=== PATIENT | male | born 1990 | race Caucasian/White ===

== ENCOUNTER 2020-04-13 10:01 | Emergency (ER) | payer OTHER, SELFPAY ==
[2020-04-13 10:58] VITALS: BP 156/76; PULSE 65; RESP 16; TEMP 36.9; O2SAT 97; BMI 37.0
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
== END 2020-04-13 11:32 | disposition home or self-care (01) ==
PROVIDERS: Emergency Provider Emergency Medicine
DX: Z04.2 Encounter for examination and observation following work accident (principal); M54.5 Low back pain
CPT/HCPCS: 99283

== ENCOUNTER 2020-07-16 14:26 | Outpatient (REF) | payer MEDICAID, SELFPAY | END 2020-07-16 14:27 | disposition home or self-care (01) | LOC: HO.LAB 14:26 | PROVIDERS: Visit Provider Internal Medicine | DX: Z20.822 Contact with and (suspected) exposure to COVID-19 (principal) | CPT/HCPCS: C9803; U0003; U0005 ==

== ENCOUNTER 2021-04-03 14:36 | Outpatient (REF) | payer MEDICAID, SELFPAY ==
[2021-04-03 15:01] LABS: COVID-19 Test Negative (Negative)
== END 2021-04-03 14:37 | disposition home or self-care (01) ==
LOC: HO.LAB 14:36
PROVIDERS: Visit Provider Internal Medicine
DX: Z20.822 Contact with and (suspected) exposure to COVID-19 (principal)
CPT/HCPCS: 87635; C9803

== ENCOUNTER 2021-06-05 10:42 | Emergency (ER) | payer MEDICAID, SELFPAY ==
[2021-06-05 10:52] VITALS: BP 121/60; PULSE 53; RESP 18; TEMP 37.1; O2SAT 98; BMI 37.2
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
[2021-06-05] MEDS: Ketorolac Tromethamine 60 MG/2 ML VIAL IM (11:49)
== END 2021-06-05 12:15 | disposition home or self-care (01) ==
PROVIDERS: Emergency Provider Emergency Medicine
DX: G89.29 Other chronic pain (principal); M54.50 Low back pain, unspecified
CPT/HCPCS: 96372; 99283; 99284; J1885

== ENCOUNTER 2021-08-06 21:00 | Emergency (ER) | payer MEDICAID, SELFPAY ==
[2021-08-06 22:01] VITALS: BP 127/82; PULSE 72; RESP 18; TEMP 36.7; O2SAT 97; BMI 37.3
--- NOTE | 2021-08-07 01:12 | ED.BACK ---
HPI - Back Pain/Injury General Chief Complaint: Back Pain/Injury Stated Complaint: lower back pain Time Seen by Provider: 08/07/21 00:55 Source: patient Mode of arrival: ambulatory Limitations: no limitations History of Present Illness HPI Narrative: Patient comes emergency room complaining of acute on chronic right-sided back pain. Patient has been going to physical therapy for chronic back pain. Patient states that today when he stood up from a sitting position, he started having sharp right sided back pain. Patient states that whenever he moves his leg or back a certain way, he feels a sharp pain that lasts for less than a second. Patient denies urinary/fecal incontinence/retention. Denies flank pain, no fever chills, denies IV drug use. Patient has been using diclofenac, gabapentin, Flexeril. Related Data Previous Rx's Medication Instructions Recorded cyclobenzaprine 5 mg tablet 5 mg PO TID PRN #10 tab 04/13/20 ibuprofen 600 mg tablet 600 mg PO Q6H PRN #20 tab 04/13/20 dexamethasone 6 mg tablet 6 mg PO DAILY #7 tab 06/05/21 (Decadron) lidocaine 5 % topical patch 1 patch TOPICAL DAILY #15 ea 06/05/21 (Lidoderm) methocarbamol 750 mg tablet 750 mg PO Q8H PRN #20 tab 06/05/21 diclofenac sodium 1 % topical gel 4 g TOPICAL QID #100 g 08/07/21 (Voltaren Arthritis Pain) Allergies Allergy/AdvReac Type Severity Reaction Status Date / Time No Known Allergies Allergy Verified 08/06/21 22:00 [No Known Allergies*] Review of Systems Review of Systems: Constitutional : No Weight loss, No Fever, No Chills, No Night Sweats, No Fatigue, No Malaise ENT/Mouth : No Hearing loss, No Ear Pain, No Nasal Congestion, No Sinus Pain, No Hoarseness, No sore throat, No Rhinorrhea, No Swallowing Difficulty Eyes: No Eye Pain, No Swelling, No Redness, No Foreign Body, No Discharge, No Vision Changes Cardiovascular : No Chest Pain, No SOB, No Dyspnea on Exertion, No Orthopnea, No Edema, No Palpitations Respiratory : No Cough, No Sputum, No Wheezing, No Smoke Exposure, No Dyspnea Gastrointestinal : No Nausea, No Vomiting, No Diarrhea, No Constipation, No abdominal Pain, No Hematochezia, No Melena Genitourinary : no irregular bleeding, No Dysuria, No Urinary Frequency, No Hematuria, No Urinary Incontinence, No Urgency, No Flank Pain, No Urinary Flow Changes, No Hesitancy Musculoskeletal : No joint pain, No Myalgias, No Joint Swelling, complaining right-sided back pain lower aspect Skin : No Skin Lesions, No rash Neuro : No Weakness, No Numbness, No Paresthesias, No Loss of Consciousness, No Dizziness, No Headache Psych : No Anxiety/Panic, No Depression, No SI/HI/AH/VH, No Social Issues, Heme/Lymph: No Bruising, No Bleeding,No Lymphadenopathy Endocrine : No Polyuria, No Polydipsia, No Temperature Intolerance PMFSH Past Medical History Medical History No known health problems Social History Social History Advance Directives: No Advance Directives Information Provided: No Physical Exam Vital Signs: Vital Signs: Last Vital Signs Temp 98.0 F 08/06/21 22:01 Pulse 72 08/06/21 22:01 Resp 18 08/06/21 22:01 BP 127/82 08/06/21 22:01 Pulse Ox 97 08/06/21 22:01 BMI result Body Mass Index 37.3 Const: Other: Appearance: Alert. Oriented X3. No acute distress. Eyes: Pupils equal, round and reactive to light. ENT: Pharynx normal. Neck: Normal inspection. Neck supple. No lymph nodes noted. No crepitus CVS: Normal heart rate and rhythm. Pulses normal. Normal S1 and S2 Respiratory: No respiratory distress. Breath sounds normal. No Wheezing. No rales Abdomen: Soft and nontender. No rigidity. No distention. Skin: Skin warm and dry. Normal skin color. Normal skin turgor Back: Pain to palpation on the right side of the lower back, no thoracic or lumbar spine tenderness. Patient has stable gait Extremities: No lower extremity edema. No Lacerations. No Rash Neuro: Oriented X 3. No motor deficit. No sensory deficit. Moving all extremities. No slurred speech. CN 2 through 12 grossly intact Psych: calm, cooperative, normal affect Course Course Course Narrative: I discussed with the patient that he likely has musculoskeletal pain. Patient given IM Toradol and dexamethasone. Patient instructed to follow-up with his primary care physician and to inform his physical therapist about the pain that he is experiencing. Patient is due for physical therapy again tomorrow. Patient states that he has enough diclofenac PO, cyclobenzaprine at home. Discharge Plan Discharge Clinical Impression: Lower back pain Patient Disposition: Home, Self-Care Instructions: Back Pain (ED) Additional Instructions: Please follow-up with your primary care physician tomorrow. If you have any worsening or new symptoms, please return to the emergency room or call 911 Prescriptions: New diclofenac sodium [Voltaren Arthritis Pain] 1 % gel 4 g topical QID Qty: 100 0RF Rx Instructions: apply to single knee, ankle, foot; for foot includes sole/toes/top of foot No Action ibuprofen 600 mg tablet 600 mg PO Q6H PRN (Reason: pain) Qty: 20 0RF cyclobenzaprine 5 mg tablet 5 mg PO TID PRN (Reason: muscle spasm) Qty: 10 0RF methocarbamol 750 mg tablet 750 mg PO Q8H PRN (Reason: muscle spasm) Qty: 20 0RF dexamethasone [Decadron] 6 mg tablet 6 mg PO DAILY Qty: 7 0RF lidocaine [Lidoderm] 5 % adhesive patch,medicated 1 patch topical DAILY Qty: 15 0RF Rx Instructions: leave on most painful area for up to 12 hrs
[2021-08-07] MEDS: dexAMETHasone sod phosphate 4 MG/ML VIAL IM (01:34)
[2021-08-07] MEDS: Ketorolac Tromethamine 60 MG/2 ML VIAL IM (01:35)
--- NOTE | 2021-08-07 01:41 | PC.NURSE ---
pt a&0, NO sob or chest pain. pt medicated per May. Reviewed discharge instructions with pt. pt verbalized understanding.
== END 2021-08-07 01:43 | disposition home or self-care (01) ==
PROVIDERS: Emergency Provider Emergency Medicine; PCP Pediatrics
DX: M54.50 Low back pain, unspecified (principal)
CPT/HCPCS: 96372; 99281; 99282; 99284; J1100; J1885

== ENCOUNTER 2021-08-07 13:00 | Outpatient (RCR) | payer OTHER, MEDICAID, SELFPAY | END 2021-12-12 14:14 | disposition home or self-care (01) | LOC: HO.PTCHIC 13:00 | PROVIDERS: PCP Pediatrics; Visit Provider Pediatrics | DX: M47.816 Spondylosis without myelopathy or radiculopathy, lumbar region (principal) | CPT/HCPCS: 97014; 97110; 97161 ==

== ENCOUNTER 2021-09-14 21:47 | Emergency (ER) | payer MEDICAID, SELFPAY ==
--- NOTE | ~2021-09-14 | XR_ITS ---
EXAMINATION: XR CHEST CLINICAL INFORMATION: Fever and cough COMPARISON: None TECHNIQUE: 2 views of the chest were obtained. FINDINGS: The lungs are well expanded. There is no focal consolidation, edema, or effusion. No pneumothorax. The cardiomediastinal silhouette is within normal limits. No acute osseous abnormality. XR/XR chest 2V IMPRESSION: Clear lungs.
[2021-09-14 22:16] VITALS: BP 138/76; PULSE 82; RESP 19; TEMP 37.1; O2SAT 97; BMI 36.9
[2021-09-14 22:56] LABS: COVID-19 Test Positive (Negative)
[2021-09-14 23:09] LABS: IDNOW Serial# 16C4AD1C; Influenza A Negative (Negative); Influenza B2 Negative (Negative)
--- NOTE | 2021-09-15 01:22 | ED_ITS ---
HPI - General Adult General Chief complaint: General Medical Stated complaint: fever, cough, sore throat, headache Time Seen by Provider: 09/14/21 22:41 Source: patient Mode of arrival: ambulatory Limitations: language barrier History of Present Illness HPI narrative: 31-year-old male presents with 1 day of upper respiratory symptoms. States that he has been around people who are sick and are COVID positive. He is requesting COVID-19 testing. Onset (ago): day(s) (1) Location: head and chest Radiation: non-radiation Severity: mild Severity scale (1-10): 3 Quality: burning Pain Consistency: constant Relieving factors: none Exacerbating factors: none Associated symptoms: cough, fever/chills, headaches and malaise Treatments prior to arrival: none Related Data Previous Rx's Medication Instructions Recorded cyclobenzaprine 5 mg tablet 5 mg PO TID PRN muscle spasm #10 04/13/20 tabs ibuprofen 600 mg tablet 600 mg PO Q6H PRN pain #20 tabs 04/13/20 dexamethasone 6 mg tablet 6 mg PO DAILY #7 tabs 06/05/21 (Decadron) lidocaine 5 % topical patch 1 patch topical DAILY #15 ea 06/05/21 (Lidoderm) methocarbamol 750 mg tablet 750 mg PO Q8H PRN muscle spasm #20 06/05/21 tabs diclofenac sodium 1 % topical gel 4 g topical QID #100 grams 08/07/21 (Voltaren Arthritis Pain) benzonatate 200 mg capsule 200 mg PO TID PRN cough #30 caps 09/15/21 Allergies Allergy/AdvReac Type Severity Reaction Status Date / Time No Known Allergies Allergy Verified 08/06/21 22:00 [No Known Allergies*] Review of Systems Review of Systems: Constitutional: positive Fever, positive Chills, positive fatigue, positive Malaise ENT/Mouth: positive sore throat, positive runny nose Eyes: No Discharge Cardiovascular: No Chest Pain, No SOB Respiratory: Positive Cough, No Sputum, No Wheezing, No Smoke Exposure, No Dyspnea Gastrointestinal: No Nausea, No Vomiting, No Diarrhea Genitourinary: no irregular bleeding, No Dysuria, No Urinary Frequency, No Hematuria, No Urinary Incontinence, No Urgency, No Flank Pain, Musculoskeletal: positive Myalgia Skin: No rash Neuro: Positive Headache Yes all other systems are reviewed and are negative [facility] Past Medical History Attestation statement: The following information was validated with the patient. Source: old records reviewed Medical History (Reviewed 09/15/21 @ : by Gill Rosales NP) No known health problems Social History Social History Advance Directives: No Advance Directives Information Provided: No Physical Exam ED Vital Signs: Vital Signs - 24 hr 09/14/21 22:16 Temperature 98.8 F Pulse Rate 82 Respiratory Rate 19 Blood Pressure 138/76 Pulse Oximetry 97 Oxygen Delivery Method Room Air BMI result Body Mass Index 36.9 Appearance: Alert. Oriented X3. No acute distress. Eyes: Pupils equal, round and reactive to light. ENT: Pharynx normal. Neck: Normal inspection. Neck supple. CVS: Normal heart rate and rhythm. Pulses normal. Respiratory: No respiratory distress. Breath sounds normal. Abdomen: Soft and nontender. Skin: Skin warm and dry. Normal skin color. Normal skin turgor. Extremities: No lower extremity edema. Neuro: No motor deficit. No sensory deficit. Cranial nerves 2-12 intact. Course Course Course Narrative: 31-year-old male presents for upper respiratory symptoms consistent with COVID- 19. Has been exposed to multiple sick contacts. Is requesting COVID-19 testing. Patient was tested while in the emergency department waiting room, COVID is positive. Vital signs are stable and within normal limits. O2 sat 97% on room air. Even unlabored respirations. Appears nontoxic, afebrile. Discussion for supportive measures with patient, patient verbalized understanding of and agrees to plan of care discharge home. Verbalized understanding of signs and symptoms indicating need for emergent intervention. pharmaceutical process engineer utilized for all correspondence. RN as systems spec. Medical Decision Making Differential Diagnosis Differential Diagnosis: COVID-19, influenza, RSV Medical Records Medical records reviewed: Yes I reviewed the patient's medical records. Lab Data Lab results reviewed: Yes I reviewed the patient's lab results. Labs: Lab Results 09/14/21 09/14/21 Range/Units 22:37 22:38 COVID-19 (CHELSI) Positive A (Negative) COVID-19 Clin Com See Note Influenza Type A (PAULA) Negative (Negative) Influenza Type B (PAULA) Negative (Negative) Influenza A & B Note See Note Discharge Plan Discharge Clinical Impression: COVID-19 Patient Disposition: Home, Self-Care Instructions: Covid-19 Viral Syndrome and Novel Coronavirus (ED) Hey/Ath, COVID-19 (Coronavirus Disease 2019) (ED) Additional Instructions: Usted fue evaluado por s?ntomas de las v?as respiratorias superiores. Has dado positivo por COVID-19 Mantenga el aislamiento seg?n las pautas estatales y federales. Seguimiento con holley m?dico de atenci?n primaria. Use el inhalador de albuterol seg?n sea necesario cada 4 a 6 horas para la dificultad para respirar. Use Tessalon Perles cada 8 horas seg?n sea necesario para la tos. Beber mucho l?quido. [place] Tylenol 650 mg cada 6 horas y Motrin 600 mg cada 6 horas seg?n sea necesario para controlar la fiebre y el dolor. Anote a qu? hora [place] estos medicamentos para evitar isac sobredosis accidental. Uzma por elegir shanae departamento de emergencias para holley evaluaci?n. Por favor, jennifer un seguimiento con el m?dico de atenci?n primaria seg?n sea necesario. Regrese al departamento de emergencias por cualquier s?ntoma nuevo, preocupante o que empeore. You were evaluated for upper respiratory symptoms. You tested positive for COVID-19 Please maintain isolation per State and Federal guidelines. Follow-up with her primary care physician. Use albuterol inhaler as needed every 4-6 hours for shortness of breath. Use Tessalon Perles every 8 hours as needed for cough. Drink plenty of fluids. Take Tylenol 650 mg every 6 hours and Motrin 600 mg every 6 hours as needed for fever and pain management. Write down what time you take these medications pr event accidental overdose. Thank you for choosing this emergency department for evaluation. Please follow-up with primary care physician as needed. Return to the emergency department for any new, concerning, or worsening symptoms. Prescriptions: New benzonatate 200 mg capsule 200 mg PO TID PRN (Reason: cough) Qty: 30 0RF No Action ibuprofen 600 mg tablet 600 mg PO Q6H PRN (Reason: pain) Qty: 20 0RF cyclobenzaprine 5 mg tablet 5 mg PO TID PRN (Reason: muscle spasm) Qty: 10 0RF methocarbamol 750 mg tablet 750 mg PO Q8H PRN (Reason: muscle spasm) Qty: 20 0RF dexamethasone [Decadron] 6 mg tablet 6 mg PO DAILY Qty: 7 0RF lidocaine [Lidoderm] 5 % adhesive patch,medicated 1 patch topical DAILY Qty: 15 0RF Rx Instructions: leave on most painful area for up to 12 hrs diclofenac sodium [Voltaren Arthritis Pain] 1 % gel 4 g topical QID Qty: 100 0RF Rx Instructions: apply to single knee, ankle, foot; for foot includes sole/toes/top of foot
--- NOTE | 2021-09-15 01:49 | PC.NURSE ---
pt resting in bed a&o, no increase sob or chest pain. Reviewed discharge instructions. Pt verbalized understanding.
[2021-09-15] MEDS: Albuterol Sulfate 90 MCG 8 GM INHALER 2 PUFF INHALE (02:01)
[2021-09-15] MEDS: Benzonatate 100 MG CAPSULE 200 MG PO (02:01)
[2021-09-15 02:03] VITALS: RESP 18
== END 2021-09-15 02:04 | disposition home or self-care (01) ==
PROVIDERS: Emergency Provider Internal Medicine; PCP Pediatrics
DX: U07.1 COVID-19 (principal); J02.9 Acute pharyngitis, unspecified
CPT/HCPCS: 71046; 87502; 87635; 99283; 99284

== ENCOUNTER 2021-10-06 19:29 | Emergency (ER) | payer OTHER, MEDICAID, SELFPAY ==
[2021-10-06 20:05] VITALS: BP 129/70; PULSE 61; RESP 18; TEMP 35.7; O2SAT 98; BMI 36.6
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
[2021-10-06] MEDS: Ketorolac Tromethamine 30 MG/ML VIAL IM (23:22)
[2021-10-06] MEDS: Cyclobenzaprine HCl 10 MG TABLET PO (23:22)
== END 2021-10-06 23:23 | disposition home or self-care (01) ==
PROVIDERS: Emergency Provider Internal Medicine
DX: S39.012A Strain of muscle, fascia and tendon of lower back, initial encounter (principal); X58.XXXA Exposure to other specified factors, initial encounter; Y93.9 Activity, unspecified; Y92.9 Unspecified place or not applicable; Y99.9 Unspecified external cause status; Z79.899 Other long term (current) drug therapy
CPT/HCPCS: 96372; 99283; 99284; J1885

== ENCOUNTER 2022-05-21 23:53 | Emergency (ER) | payer MEDICAID, SELFPAY ==
--- NOTE | ~2022-05-21 | XR_ITS ---
EXAMINATION: XR CHEST CLINICAL INFORMATION: Chest COMPARISON: 09/14/2021 TECHNIQUE: Frontal view of the chest was obtained. FINDINGS: No significant abnormality is noted involving the heart, lungs, mediastinum, bony thorax or soft tissues. XR/XR chest 1V IMPRESSION: Unremarkable examination.
[2022-05-22 00:33] VITALS: BP 148/84; PULSE 91; RESP 16; TEMP 36.6; O2SAT 95; BMI 24.4
[2022-05-22 01:07] LABS: Hematocrit 46.5 % (42.0-52.0); Hemoglobin 15.6 g/dl (14.0-18.0); Mean Corpuscular HGB Conc 33.5 g/dl (31.0-36.0); Mean Corpuscular Hemoglobin 28.2 pg (27.0-33.0); Mean Corpuscular Volume 84.1 fL (80.0-98.0); Platelet Count 232 X10*3/uL (160-400); Red Blood Count 5.53 X10*6/uL (4.60-5.80); Red Cell Distribution Width 12.8 % (11.0-16.0); White Blood Count 6.9 X10*3/uL (4.8-10.8)
[2022-05-22 01:38] LABS: Alanine Aminotransferase 46 U/L (0-40); Albumin Level 4.3 g/dL (3.5-5.0); Alkaline Phosphatase 63 U/L (39-117); Anion Gap 10 (12-20); Aspartate Amino Transferase 24 U/L (5-37); Bilirubin Direct 0.2 mg/dL (0.0-0.5); Bilirubin Total 0.5 mg/dL (0.0-1.0); Blood Urea Nitrogen 14 mg/dL (9-16); Calcium 9.5 mg/dL (8.4-10.2); Carbon Dioxide 31 mmol/L (22-29); Chloride 104 mmol/L (96-108); Creatinine Clr Calc Pharmacy 96.4; Estimated Glomerular Filt Rate > 60; Glucose Random 128 mg/dL (60-115); Lipase 24 U/L (8-78); Potassium 4.1 mmol/L (3.3-5.1); Sodium 141 mmol/L (135-145); Total Protein 6.9 g/dL (6.5-8.0)
--- NOTE | 2022-05-22 01:39 | ED_ITS ---
HPI - Back Pain/Injury General Chief Complaint: Back Pain/Injury Stated Complaint: Back pain Time Seen by Provider: 05/22/22 01:32 Source: patient Mode of arrival: ambulatory Limitations: no limitations History of Present Illness HPI Narrative: Patient comes to the emergency room complaining left lower back pain for 4 days. Patient states that it hurts when he takes big breaths. He does not have upper or middle back pain. Patient denies hematuria or dysuria, no fever chills. Related Data Previous Rx's Medication Instructions Recorded cyclobenzaprine 5 mg tablet 5 mg PO TID PRN muscle spasm #10 04/13/20 tabs ibuprofen 600 mg tablet 600 mg PO Q6H PRN pain #20 tabs 04/13/20 dexamethasone 6 mg tablet 6 mg PO DAILY #7 tabs 06/05/21 (Decadron) lidocaine 5 % topical patch 1 patch topical DAILY #15 ea 06/05/21 (Lidoderm) methocarbamol 750 mg tablet 750 mg PO Q8H PRN muscle spasm #20 06/05/21 tabs diclofenac sodium 1 % topical gel 4 g topical QID #100 grams 08/07/21 (Voltaren Arthritis Pain) benzonatate 200 mg capsule 200 mg PO TID PRN cough #30 caps 09/15/21 cyclobenzaprine 10 mg tablet 10 mg PO TID PRN muscle spasm #10 10/06/21 tabs ketorolac 10 mg tablet 10 mg PO Q8H PRN pain #10 tabs 10/06/21 baclofen 10 mg tablet 10 mg PO BID PRN Muscle spasms #10 05/22/22 tabs Allergies Allergy/AdvReac Type Severity Reaction Status Date / Time No Known Allergies Allergy Verified 08/06/21 22:00 [No Known Allergies*] Review of Systems Review of Systems: Constitutional : No Weight loss, No Fever, No Chills, No Night Sweats, No Fatigue, No Malaise ENT/Mouth : No Hearing loss, No Ear Pain, No Nasal Congestion, No Sinus Pain, No Hoarseness, No sore throat, No Rhinorrhea, No Swallowing Difficulty Eyes: No Eye Pain, No Swelling, No Redness, No Foreign Body, No Discharge, No V ision Changes Cardiovascular : No Chest Pain, No SOB, No Dyspnea on Exertion, No Orthopnea, No Edema, No Palpitations Respiratory : No Cough, No Sputum, No Wheezing, No Smoke Exposure, No Dyspnea Gastrointestinal : No Nausea, No Vomiting, No Diarrhea, No Constipation, No abdominal Pain, No Hematochezia, No Melena Genitourinary : no irregular bleeding, No Dysuria, No Urinary Frequency, No Hematuria, No Urinary Incontinence, No Urgency, No Flank Pain, No Urinary Flow Changes, No Hesitancy Musculoskeletal : Complaining of left lower quadrant pain worse with deep inspiration, No joint pain, No Myalgias, No Joint Swelling Skin : No Skin Lesions, No rash Neuro : No Weakness, No Numbness, No Paresthesias, No Loss of Consciousness, No Dizziness, No Headache Psych : No Anxiety/Panic, No Depression, No SI/HI/AH/VH, No Social Issues, Heme/Lymph: No Bruising, No Bleeding,No Lymphadenopathy Endocrine : No Polyuria, No Polydipsia, No Temperature Intolerance [facility] Past Medical History Medical History No known health problems Social History Social History Patient Tobacco Use Status: Never used Tobacco Advance Directives: No Advance Directives Information Provided: No Physical Exam Vital Signs: Vital Signs: Last Vital Signs Temp 98 F 05/22/22 02:22 Pulse 59 05/22/22 02:22 Resp 19 05/22/22 02:22 BP 134/78 05/22/22 02:22 Pulse Ox 97 05/22/22 02:22 O2 Del Method 05/22/22 02:22 BMI result Body Mass Index 24.4 Const: Other: Appearance: Alert. Oriented X3. No acute distress. Eyes: Pupils equal, round and reactive to light. ENT: Pharynx normal. Neck: Normal inspection. Neck supple. No lymph nodes noted. No crepitus CVS: Normal heart rate and rhythm. Pulses normal. Normal S1 and S2 Respiratory: No respiratory distress. Breath sounds normal. No Wheezing. No rales Abdomen: Soft and nontender. No rigidity. No distention. Back: No pain to palpation in the left back, no CVA tenderness Skin: Skin warm and dry. Normal skin color. Normal skin turgor. Extremities: No lower extremity edema. No Lacerations. No Rash Neuro: Oriented X 3. No motor deficit. No sensory deficit. Moving all extremities. No slurred speech. CN 2 through 12 grossly intact Psych: calm, cooperative, normal affect Course Course Course Narrative: -patient's labs and imaging pending Medical Decision Making Medical Decision Making MDM Narrative: Patient's urinalysis negative for UTI. -chest x-ray negative. -based on physical exam, patient likely has musculoskeletal pain. Kidney stones are not suspect that this time. Differential Diagnosis Differential Diagnoses: The differential diagnosis associated with the presentation includes (Musculoskeletal pain, kidney stones, sciatica) Lab Data [facility] Lab Attestation statement: I reviewed the patient's lab results. 05/22/22 01:01 05/22/22 01:01 Labs: Lab Results 05/22/22 05/22/22 05/22/22 Range/Units 01:01 01:01 01:58 WBC 6.9 (4.8-10.8) X10*3/uL RBC 5.53 (4.60-5.80) X10*6/uL Hgb 15.6 (14.0-18.0) g/dl Hct 46.5 (42.0-52.0) % MCV 84.1 (80.0-98.0) fL MCH 28.2 (27.0-33.0) pg MCHC 33.5 (31.0-36.0) g/dl RDW 12.8 (11.0-16.0) % Plt Count 232 (160-400) X10*3/uL MPV 9.0 L (9.4-12.4) fL Absolute Nucleated RBC 0.000 (0.0-0.012) X10*3/uL Nucleated RBC % (auto) 0.0 (0.0-0.2) /100WBC Sodium 141 (135-145) mmol/L Potassium 4.1 (3.3-5.1) mmol/L Chloride 104 (96-108) mmol/L Carbon Dioxide 31 H (22-29) mmol/L Anion Gap 10 L (12-20) BUN 14 (9-16) mg/dL Creatinine 1.16 (0.5-1.4) mg/dL Estim Creat Clear Calc 96.4 Estimated GFR > 60 Random Glucose 128 H (60-115) mg/dL Calcium 9.5 (8.4-10.2) mg/dL Total Bilirubin 0.5 (0.0-1.0) mg/dL Direct Bilirubin 0.2 (0.0-0.5) mg/dL AST 24 (5-37) U/L ALT 46 H (0-40) U/L Alkaline Phosphatase 63 (39-117) U/L Total Protein 6.9 (6.5-8.0) g/dL Albumin 4.3 (3.5-5.0) g/dL Lipase 24 (8-78) U/L Urine Color Yellow Urine Appearance Clear Urine pH 6.5 (5.0-9.0) Ur Specific [place] 1.025 (1.005-1.025) Urine Protein Negative (Neg-Trace) mg/dL Urine Glucose (UA) Negative (Negative) mg/dL Urine Ketones Negative (Negative) mg/dL Urine Blood Negative (Negative) Urine Nitrite Negative (Negative) Ur Leukocyte Esterase Negative (Negative) Independent Interpretation I performed an independent interpretation of an: Plain X-Ray (My interpretation of chest x-ray: No pneumonia, no fracture, no pneumothorax.) Radiology Impression Discussion of test interpretation with radiology: I have reviewed the radiologist's reading. Radiologist Impression: FINDINGS: No significant abnormality is noted involving the heart, lungs, mediastinum, bony thorax or soft tissues. XR/XR chest 1V IMPRESSION: Unremarkable examination. ? Discharge Plan Discharge Clinical Impression: Strain of lumbar region Patient Disposition: Home, Self-Care Instructions: Low Back Strain (ED) Additional Instructions: Please follow-up with your primary care physician tomorrow. If you have any worsening or new symptoms, please return to the emergency room or call 911 Prescriptions: New baclofen 10 mg tablet 10 mg PO BID PRN (Reason: Muscle spasms) Qty: 10 0RF No Action ibuprofen 600 mg tablet 600 mg PO Q6H PRN (Reason: pain) Qty: 20 0RF cyclobenzaprine 5 mg tablet 5 mg PO TID PRN (Reason: muscle spasm) Qty: 10 0RF benzonatate 200 mg capsule 200 mg PO TID PRN (Reason: cough) Qty: 30 0RF methocarbamol 750 mg tablet 750 mg PO Q8H PRN (Reason: muscle spasm) Qty: 20 0RF dexamethasone [Decadron] 6 mg tablet 6 mg PO DAILY Qty: 7 0RF lidocaine [Lidoderm] 5 % adhesive patch,medicated 1 patch topical DAILY Qty: 15 0RF Rx Instructions: leave on most painful area for up to 12 hrs diclofenac sodium [Voltaren Arthritis Pain] 1 % gel 4 g topical QID Qty: 100 0RF Rx Instructions: apply to single knee, ankle, foot; for foot includes sole/toes/top of foot cyclobenzaprine 10 mg tablet 10 mg PO TID PRN (Reason: muscle spasm) Qty: 10 0RF ketorolac 10 mg tablet 10 mg PO Q8H PRN (Reason: pain) Qty: 10 0RF
[2022-05-22 02:08] LABS: Appearance Urine Clear; Color Urine Yellow; Glucose Urine UA Negative (Negative); Leukocyte Esterase Urine Negative (Negative); Nitrite Urine Negative (Negative); PH 6.5 (5.0-9.0); Specific Gravity - Urine 1.025 (1.005-1.025); Urine Blood Negative (Negative); Urine Ketones Negative (Negative); Urine Protein Negative (Neg-Trace)
[2022-05-22 02:22] VITALS: BP 134/78; PULSE 59; RESP 19; TEMP 36.6; O2SAT 97
== END 2022-05-22 03:54 | disposition home or self-care (01) ==
PROVIDERS: Emergency Provider Emergency Medicine; PCP Pediatrics
DX: M54.50 Low back pain, unspecified (principal); S39.012A Strain of muscle, fascia and tendon of lower back, initial encounter; X58.XXXA Exposure to other specified factors, initial encounter; Y93.9 Activity, unspecified; Y92.9 Unspecified place or not applicable; Y99.9 Unspecified external cause status
CPT/HCPCS: 36415; 71045; 80053; 81003; 82248; 83690; 85027; 99283